=== PATIENT | male | born 2000 | race Caucasian/White ===

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

== ENCOUNTER 2019-06-18 21:42 | Emergency (ER) | payer OTHER ==
[~2019-06-18] VITALS: Ht 190.5 cm; Wt 72.6 kg
[~2019-06-18 21:42] MED LIST: CYCLOBENZAPRINE10 MG PO; NAPROSYN500 MG PO
[2019-06-18 23:52] VITALS: BP 120/78
== END 2019-06-18 23:52 | disposition home or self-care (01) ==
LOC: M.ERS 21:42
DX: J06.9 Acute upper respiratory infection, unspecified (principal)